=== PATIENT | male | born 2000 | race Caucasian/White ===

== ENCOUNTER 2024-02-20 16:24 | Emergency (ER) | payer SELFPAY ==
[~2024-02-20] VITALS: Ht 182.9 cm; Wt 79.5 kg
[2024-02-20 16:55] LABS: BASO % 0.4 % (0.0-2.0); EOS % 0.4 % (0.0-4.0); GRAN # 6.8 K/mm3 (1.4-6.5); GRAN % 76.7 % (42.2-75.2); HEMATOCRIT 43.3 % (42.0-52.0); HEMOGLOBIN 14.5 g/dl (13.5-18.0); LYMPH # 1.4 K/mm3 (1.2-3.4); LYMPH % 16.1 % (20.0-51.0); MEAN CELL VOLUME 88 fl (80.0-100.0); MEAN CORPUSCULAR HEMOGLOBIN 29 pg (27-31); MEAN CORPUSCULAR HGB CONC 34 g/dl (33.0-37.0); MEAN PLATELET VOLUME 9.8 fl (7.4-10.4); MONO # 0.6 K/mm3 (0.1-0.6); MONO % 6.2 % (1.7-9.3); PLATELET COUNT 388 K/mm3 (130-400); RED BLOOD COUNT 4.95 M/mm3 (4.20-5.60); REDCELL DISTRIBUTION WIDTH-CV 12.7 % (11.5-14.5)
[2024-02-20 17:19] LABS: ALANINE AMINOTRANSFERASE 24 U/L (0-55); ALBUMIN 4.9 g/dL (3.5-5.0); ALKALINE PHOSPHATASE 60 U/L (40-150); ANION GAP 12 mmol/L (7-16); AST,SGOT 25 U/L (5-34); BILIRUBIN,TOTAL 0.9 mg/dL (0.2-1.2); BLOOD UREA NITROGEN 15 mg/dL (9-21); CALCIUM 10.3 mg/dL (8.4-10.2); CHLORIDE 104 mEq/L (98-107); CREATININE, serum 1.75 mg/dL (0.72-1.25); GLUCOSE 87 mg/dL (70-99); POTASSIUM 3.6 mEq/L (3.5-4.5); SODIUM 142 mEq/L (136-145); TOTAL PROTEIN 8.1 g/dl (6.2-8.1)
[2024-02-20 17:29] LABS: TROPONIN-I < 0.010 ng/mL (0.00-0.033)
[2024-02-20] MEDS ORDERED: NS 1,000 ML IV ONE (18:15)
[2024-02-20 19:13] VITALS: BP 111/70; PULSE 48
== END 2024-02-20 19:20 | disposition home or self-care (01) ==
LOC: COL.ER 16:24
PROVIDERS: Personal Emergency Response Attendant
DX: R07.2 Precordial pain (principal); E86.0 Dehydration
CPT/HCPCS: J7030